=== PATIENT | female | born 1995 | race African-American/Black ===

== ENCOUNTER → 2017-12-21 13:09 | Outpatient (CLI) | payer BC, SELFPAY ==
[2017-12-21 16:10] LABS: Absolute Lymphocyte Count 1.84 X10^3/ul (0.83-4.51); Absolute Neutrophil Count 7.1 X10^3/uL (2.0-7.7); Basophil# 0.03 X10^3/uL; Basophil% 0.3 % (0-1); Eosinophil# 0.06 X10^3/uL; Eosinophils% 0.6 % (0-5); Hematocrit 35.8 % (37-47); Hemoglobin 11.4 g/dl (12.0-15.0); Lymphocyte # 1.84 X10^3/ul (4.0); Lymphocyte % 19.1 % (19-41); Mean Corp Hgb Conc 31.8 g/gl (32-36); Mean Platelet Vol. 8.8 fl (6.2-12.0); Monocyte# 0.55 X10^3/uL; Monocyte% 5.7 % (0-10); Neutrophil # 7.12 X10^3/uL (2.7-7.7); Neutrophil % 74.1 % (47-70); Platelet Count 358 K/mm3 (150-450); RBC Distribution Width CV 12.8 % (11.6-14.6); Red Blood Count 4.07 M/mm3 (4.2-5.4); White Blood Count 9.6 K/mm3 (4.4-11.0)
[2017-12-21 16:15] LABS: POSITIVE COUNT NO; POSITIVE DIFFERENTIAL NO; POSITIVE MORPHOLOGY NO
[2017-12-21 16:18] LABS: Glucose Challenge Gest 1H 50g 64 mg/dL (70-140)
[2017-12-21 17:01] LABS: HIV - WCH Non-Reactive (Nonreactive); Rubella IgG 88.5 IU/mL
[2017-12-21 18:15] LABS: Chlamydia Trachomatis by PCR Negative (Negative); Neisserai gonorrhoeae by PCR Negative (Negative); Probe Check PASS; Sample Adequacy Control PASS; Specimen Processing Control PASS
[2017-12-23 01:02] LABS: Rapid Plasmin Reagin (RPR) NONREACTIVE (NONREACTIVE)
[2017-12-23 16:09] LABS: Hemoglobin Fraction A 97.7 % (96.4-98.8); Hemoglobin Fraction A2 2.3 % (1.8-3.2); Hemoglobin Fraction C 0 % (0.0); Hemoglobin Fraction F 0 % (0.0-2.0); Hemoglobin Fraction S 0 % (0.0); Hemoglobin Solubility,Panel Negative (Negative)
[2017-12-23 18:36] LABS: HEPATITIS B SURFACE AG Negative (Negative)
[2017-12-27 14:35] LABS: HPV Reflexed? NOT INDICATED
== END ==
PROVIDERS: Visit Provider Obstetrics & Gynecology
DX: Z12.4 Encounter for screening for malignant neoplasm of cervix (principal); Z34.00 Encounter for supervision of normal first pregnancy, unspecified trimester
CPT/HCPCS: 82950; 83021; 85025; 85660; 86592; 86703; 86762; 86850; 86900; 87086; 87340; 87491; 87591; 88175; G0145

== ENCOUNTER → 2018-02-24 15:39 | Outpatient (CLI) | payer BC, SELFPAY ==
[2018-03-07 12:08] LABS: AFP MoM Value 0.99 (.); AFP Value-EIA 29.3 ng/mL (.); Comment Report (.); DIA MoM Value 1.39 (.); DIA Value-EIA 181.86 pg/mL (.); DSR (By Age) 1056 (.); DSR (Second Trimester) 592 (.); Gestat. Age Based On As provided (.); Gestational Age 17.1 WEEKS (.); Insulin Dep Diabetes No (.); Maternal Age At EDD 24.4 yr (.); hCG MoM 2.08 (.); hCG Value 49753 mIU/mL (.)
== END ==
PROVIDERS: Family Provider Family Medicine; PCP Family Medicine; Referring Provider Obstetrics & Gynecology; Visit Provider Obstetrics & Gynecology
DX: Z34.90 Encounter for supervision of normal pregnancy, unspecified, unspecified trimester (principal)
CPT/HCPCS: 36415; 82105; 82677; 84702; 86336

== ENCOUNTER → 2018-05-12 15:04 | Outpatient (CLI) | payer BC, SELFPAY ==
[2018-05-12 14:55] VITALS: BMI 36.5
[2018-05-12 15:49] LABS: Hematocrit 30.5 % (37-47); Hemoglobin 10.1 g/dl (12.0-15.0); Mean Corp Hgb Conc 33.1 g/gl (32-36); Mean Corpuscular Volume 90.5 fL (81-99); Mean Platelet Vol. 9.3 fl (6.2-12.0); Platelet Count 322 K/mm3 (150-450); RBC Distribution Width CV 12.6 % (11.6-14.6); RBC Distribution Width SD 40.4 fl (35.1-43.9); Red Blood Count 3.37 M/mm3 (4.2-5.4); White Blood Count 12.4 K/mm3 (4.4-11.0)
[2018-05-12 15:50] LABS: Differential Indicated MANUAL DIFF; POSITIVE COUNT YES; POSITIVE DIFFERENTIAL NO; POSITIVE MORPHOLOGY YES
[2018-05-12 16:12] LABS: Glucose Challenge Gest 1H 50g 81 mg/dL (70-140)
[2018-05-12 17:26] LABS: Lymphocyte 17 % (19-41); Monocyte 4 % (0-10); Neutrophil-Band 1 % (0-5); Neutrophil-Segmented 78 % (47-70); Platelet Estimate ADEQUATE (ADEQ); Red Cell Morphology NORM C+C NORMAL (NORM C&C); Total Cells Counted 100 (MANUAL DIFF)
[2018-05-12 20:58] LABS: Absolute Lymphocyte Count 2.11 X10^3/ul (0.83-4.51); Absolute Neutrophil Count 9.8 X10^3/uL (2.0-7.7)
[2018-05-15 11:47] LABS: Pathologist Review Reviewed
== END ==
PROVIDERS: Family Provider Family Medicine; PCP Family Medicine; Referring Provider Obstetrics & Gynecology; Visit Provider Obstetrics & Gynecology
DX: Z34.90 Encounter for supervision of normal pregnancy, unspecified, unspecified trimester (principal)
CPT/HCPCS: 36415; 82950; 85025

== ENCOUNTER 2018-06-30 16:05 | Outpatient (CLI) | payer BC, SELFPAY ==
[2018-06-20 15:04] VITALS: BMI 37.9
[2018-06-30 16:44] VITALS: BMI 38.3
--- NOTE | 2018-07-01 12:41 | OB.TRI.NOTE ---
- Problem List (1) Threatened labor Status: Acute (2) Mild anemia Status: Acute (3) Obesity affecting Status: Acute Qualifiers: Comment: 1 tm glucola normal, healthy weight gain discussed (4) Status: Acute Qualifiers: Comment: genetic and carrier screening declined. ntd screening negative. Anatomy US normal. (5) BMI 33.0-33.9,adult Status: Acute Comment: 1 tm glucola nl, discussed weight gain in (6) Asthma affecting , antepartum Status: Acute Comment: albuterol PRN (7) Supervision of normal Status: Acute Qualifiers: Comment: PRR CHELSEY 08/03/18 raul Palacios Salo History of Present Illness Date of Service: 06/30/18 Reason For Visit: R/O LABOR History of Present Illness: co ctx Allergies Mycobacterium Tuberculosis (Tubercu Allergy (Mild, Verified 06/20/18 15:03) Nausea/Vom/Diarrhea Sulfa (Sulfonamide Antibiotics) Allergy (Mild, Verified 06/20/18 15:03) Other - Pertinent Past Medical History Medical History: Past Medical History (Last Reviewed 06/20/18 @ 15:03 by Martine Sterling) Asthma Surgical History: Past Surgical History (Last Reviewed 06/20/18 @ 15:04 by Martine Sterling) History of wisdom tooth extraction, class II edentulism NST - FHR Rate Baby A Baseline: 130 Variability:: Moderate Accelerations:: 15 x 15 Decelerations:: None NST Reactive:: Yes FHR Category:: Category I Uterine Activity:: irregular Impression/Plan threatened labor dc home labor precautions reactive NST
== END 2018-06-30 16:46 | disposition home or self-care (01) ==
LOC: WPOUT 16:08 → WP 16:09
PROVIDERS: Family Provider Family Medicine; PCP Family Medicine; Referring Provider Obstetrics & Gynecology; Visit Provider Obstetrics & Gynecology
DX: O60.03 Preterm labor without delivery, third trimester (principal); Z3A.00 Weeks of gestation of pregnancy not specified; J45.909 Unspecified asthma, uncomplicated; O99.210 Obesity complicating pregnancy, unspecified trimester; E66.9 Obesity, unspecified
CPT/HCPCS: 59050; 99218; G0378

== ENCOUNTER → 2018-07-05 16:12 | Outpatient (CLI) | payer BC, SELFPAY ==
[2018-07-05 15:47] VITALS: BMI 38.3
== END ==
PROVIDERS: Family Provider Family Medicine; PCP Family Medicine; Referring Provider Nurse Practitioner Women's Health; Visit Provider Nurse Practitioner Women's Health
DX: Z34.03 Encounter for supervision of normal first pregnancy, third trimester (principal)
CPT/HCPCS: 87077; 87081

== ENCOUNTER 2018-07-31 13:25 | Inpatient (IN) | payer BC, SELFPAY ==
[2018-07-28 17:03] VITALS: BMI 38.3
[2018-07-31 13:08] VITALS: BMI 39.6
[2018-07-31 13:23] LABS: ROM Internal Control Test YES-OK TO RESULT pt. (Internal QC)
[2018-07-31 13:24] LABS: ROM Patient Test POSITIVE (Negative); Record Kit Lot#, ROM+ J7836
[2018-07-31] MEDS: Lactated Ringers 1,000 ML 50 ML IV ×2 (14:10→22:19)
[2018-07-31] MEDS: Oxytocin 30 units/NS 500 ml 30 UNITS/500 ML IV.SOLN IV (14:53)
[2018-07-31 15:06] LABS: Absolute Neutrophil Count 8.7 X10^3/uL (2.0-7.7); Basophil# 0.03 X10^3/uL; Basophil% 0.3 % (0-1); Eosinophil# 0.08 X10^3/uL; Eosinophils% 0.7 % (0-5); Hemoglobin 12.2 g/dl (12.0-15.0); Lymphocyte % 13.1 % (19-41); Mean Corp Hgb Conc 32.1 g/gl (32-36); Mean Corpuscular Hgb 29.5 pg (27.0-32.0); Mean Platelet Vol. 9.6 fl (6.2-12.0); Monocyte# 0.76 X10^3/uL; Monocyte% 6.7 % (0-10); Neutrophil # 8.72 X10^3/uL (2.7-7.7); Neutrophil % 76.4 % (47-70); Platelet Count 266 K/mm3 (150-450); RBC Distribution Width SD 46.1 fl (35.1-43.9); Red Blood Count 4.13 M/mm3 (4.2-5.4); White Blood Count 11.4 K/mm3 (4.4-11.0)
--- NOTE | 2018-07-31 15:13 | PCM.HP.OB ---
- Problem List (1) PROM (premature rupture of membranes) Status: Acute (2) Mild anemia Status: Acute (3) Obesity affecting Status: Acute Qualifiers: Comment: 1 tm glucola normal, healthy weight gain discussed (4) Status: Acute Qualifiers: Comment: genetic and carrier screening declined. ntd screening negative. Anatomy US normal. (5) BMI 33.0-33.9,adult Status: Acute Comment: 1 tm glucola nl, discussed weight gain in (6) Asthma affecting , antepartum Status: Acute Comment: albuterol PRN (7) Supervision of normal Status: Acute Qualifiers: Comment: PRR CHELSEY 08/03/18 boy Philip Salo History Date of Admission: 07/31/18 Final CHELSEY: 08/03/18 Gestational age: 39 Weeks and 4 Days History of this : This is a 23 year-old, , at 39 weeks gestational age presents with PROM clear fluid this morning. she isn't having any significant ctx or vb. she has had an uncomplicated Medical History: Medical History (Last Reviewed 07/28/18 @ 16:38 by Lulu Dobbins) Asthma J45.909 Surgical History: Surgical History (Last Reviewed 07/28/18 @ 16:38 by Lulu Dobbins) History of wisdom tooth extraction, class II edentulism K08.492 Allergies Mycobacterium Tuberculosis (Tubercu Allergy (Mild, Verified 07/31/18 13:09) Nausea/Vom/Diarrhea Sulfa (Sulfonamide Antibiotics) Allergy (Mild, Verified 07/31/18 13:09) Other Home Medications: Home Medications vitamin,calcium,ocatdzfi-huju-tipnm acid tablet 1 tab PO QDAY 12/21/17 Smoking Status: Never smoker Alcohol: None Number of Fetus(es): 1 Heart Tracinmoderate variability reactive no decelerations category I tracing [place]: no regular History Past Pregnancies: Past Pregnancies Delivery Date Name GA/Weeks Outcome Route Weight Gender Labor Length Anesthesia Delivery Location Provider FOB Labs: Mom's Labs & Results 07/31/18 07/31/18 07/31/18 13:10 14:10 14:10 WBC Pending RBC Pending Hgb Pending Hct Pending MCV Pending MCH Pending MCHC Pending RDW Pending RDW Differential Pending Plt Count Pending Neut % (Auto) Pending Absolute Neuts (auto) Pending Total Counted Pending Vag Amniotic Fld Detect POSITIVE H Blood Type Pending Antibody Screen Pending Course Did the patient receive Yes care? Labs Blood Type: B RH: POSITIVE RPR/VDRL/Syphilis Nonreactive Rubella status Immune HbSAg Negative Date Done: 12/21/17 Chlamydia Negative Gonorrhea Negative HIV/AIDS Non-Reactive Group B Strep: Negative Current Obstetrical History Gestational Diabetes No Incompetent Cervix No Infertility Yes: Pt has PCOS IUGR No Macrosomia No Hypertension/Pre-eclampsia No Placenta Previa/Abruption No PTL/PROM No Uterine anomaly No Oligohydramnios No Polyhydramnios No Past Medical History Asthma Yes Diabetes No Hypertension No Heart disease No Mitral valve prolapse No Neurologic/Seizure disorder/ No Migraines Kidney disease No Liver disease No Varicosities No Clotting disorders/Hx of DVT No Thyroid Dysfunction No Other medical diseases Yes: PCOS Psychiatric disorders No Major trauma No Abnormal PAP smear No Sleep apnea No Mammogram in the last 2 years No Social History Marital Status: Alleged father Salo Hx Smoking No Smoking Status Never smoker How long have you used n/a substances (years)? Expected Infant Delivery Method: Spontaneous Vaginal Review of Systems Constitutional: Denies: Fever, Malaise Eyes: Denies: Blurred vision, Vision Change HEENT: Denies: Head Aches, Visual Changes Cardiovascular: Denies: Chest Pain, Palpitations Respiratory: Denies: Cough, Shortness of Breath, Wheezing Gastrointestinal: Denies: Abdominal Pain, Diarrhea, Nausea, Vomiting Genitourinary: Denies: Dysuria, Hematuria Gynecological: Reports: Vaginal discharge Musculoskeletal: Denies: Joint Pain, Muscle pain Skin: Denies: Lesions, Rash Neurological: Denies: Blurred vision, Focal weakness, Headaches Psychiatric: Denies: Anxiety, Depression Endocrine: Denies: Heat/ Cold Intolerance Hematologic/ Lymphatic: Denies: Easy Bruising, Easy Bleeding Physical Exam General: Alert, Cooperative, No apparent distress HEENT: Atraumatic, Normocephalic. Negative for: Thyromegaly, Lymphadenopathy Cardiovascular: Regular rate Lungs: Normal air movement Abdomen: Soft, Non Tender, Gravid Neurological: Deep Tendon Reflexes 2+/4 and Symmetrical, Neuro grossly intact. Negative for: Clonus SHOE FITTER: Normal external genitalia. Negative for: Vulvar lesions Estimated gestational size: Appropriate for gestational size Presentation: Cephalic Cervix Dilation (cm): 1 Station: -3 Effacement (%): 50 Assessment/Plan All Active Problems (Last Reviewed 07/28/18 @ 16:38 by Lulu Dobbins) PROM (premature rupture of membranes) (Acute) Threatened labor (Acute) Mild anemia (Acute) Obesity affecting (Acute) (Acute) BMI 33.0-33.9,adult (Acute) Asthma affecting , antepartum (Acute) Supervision of normal (Acute) Flu vaccine need (Resolved) This is a 23 year-old, , at 39 weeks gestational age presents PROM Patient presents IOL, plan management for , pitocin per protocol. Pain management: plans epidural GBS negative. Management of any complications: none I have reviewed the [facility] and made any clinically relevant updates.
--- NOTE | 2018-07-31 15:17 | HP.PCM_ITS ---
- Problem List (1) PROM (premature rupture of membranes) Status: Acute (2) Mild anemia Status: Acute (3) Obesity affecting Status: Acute Qualifiers: Comment: 1 tm glucola normal, healthy weight gain discussed (4) Status: Acute Qualifiers: Comment: genetic and carrier screening declined. ntd screening negative. Anatomy US normal. (5) BMI 33.0-33.9,adult Status: Acute Comment: 1 tm glucola nl, discussed weight gain in (6) Asthma affecting , antepartum Status: Acute Comment: albuterol PRN (7) Supervision of normal Status: Acute Qualifiers: Comment: PRR CHELSEY 08/03/18 boy Philip Salo History Date of Admission: 07/31/18 Final CHELSEY: 08/03/18 Gestational age: 39 Weeks and 4 Days History of this : This is a 23 year-old, , at 39 weeks gestational age presents with PROM clear fluid this morning. she isn't having any significant ctx or vb. she has had an uncomplicated Medical History: Medical History (Last Reviewed 07/28/18 @ 16:38 by Lulu Dobbins) Asthma J45.909 Surgical History: Surgical History (Last Reviewed 07/28/18 @ 16:38 by Lulu Dobbins) History of wisdom tooth extraction, class II edentulism K08.492 Allergies Mycobacterium Tuberculosis (Tubercu Allergy (Mild, Verified 07/31/18 13:09) Nausea/Vom/Diarrhea Sulfa (Sulfonamide Antibiotics) Allergy (Mild, Verified 07/31/18 13:09) Other Home Medications: Home Medications vitamin,calcium,ityvqgfm-hfcp-hfhsn acid tablet 1 tab PO QDAY 12/21/17 Smoking Status: Never smoker Alcohol: None Number of Fetus(es): 1 Heart Tracinmoderate variability reactive no decelerations category I tracing [place]: no regular History Past Pregnancies: Past Pregnancies Delivery Date Name GA/Weeks Outcome Route Weight Gender Labor Length Anesthesia Delivery Location Provider FOB Labs: Mom's Labs & Results 07/31/18 07/31/18 07/31/18 13:10 14:10 14:10 WBC Pending RBC Pending Hgb Pending Hct Pending MCV Pending MCH Pending MCHC Pending RDW Pending RDW Differential Pending Plt Count Pending Neut % (Auto) Pending Absolute Neuts (auto) Pending Total Counted Pending Vag Amniotic Fld Detect POSITIVE H Blood Type Pending Antibody Screen Pending Course Did the patient receive Yes care? Labs Blood Type: B RH: POSITIVE RPR/VDRL/Syphilis Nonreactive Rubella status Immune HbSAg Negative Date Done: 12/21/17 Chlamydia Negative Gonorrhea Negative HIV/AIDS Non-Reactive Group B Strep: Negative Current Obstetrical History Gestational Diabetes No Incompetent Cervix No Infertility Yes: Pt has PCOS IUGR No Macrosomia No Hypertension/Pre-eclampsia No Placenta Previa/Abruption No PTL/PROM No Uterine anomaly No Oligohydramnios No Polyhydramnios No Past Medical History Asthma Yes Diabetes No Hypertension No Heart disease No Mitral valve prolapse No Neurologic/Seizure disorder/ No Migraines Kidney disease No Liver disease No Varicosities No Clotting disorders/Hx of DVT No Thyroid Dysfunction No Other medical diseases Yes: PCOS Psychiatric disorders No Major trauma No Abnormal PAP smear No Sleep apnea No Mammogram in the last 2 years No Social History Marital Status: Alleged father Salo Hx Smoking No Smoking Status Never smoker How long have you used n/a substances (years)? Expected Infant Delivery Method: Spontaneous Vaginal Review of Systems Constitutional: Denies: Fever, Malaise Eyes: Denies: Blurred vision, Vision Change HEENT: Denies: Head Aches, Visual Changes Cardiovascular: Denies: Chest Pain, Palpitations Respiratory: Denies: Cough, Shortness of Breath, Wheezing Gastrointestinal: Denies: Abdominal Pain, Diarrhea, Nausea, Vomiting Genitourinary: Denies: Dysuria, Hematuria Gynecological: Reports: Vaginal discharge Musculoskeletal: Denies: Joint Pain, Muscle pain Skin: Denies: Lesions, Rash Neurological: Denies: Blurred vision, Focal weakness, Headaches Psychiatric: Denies: Anxiety, Depression Endocrine: Denies: Heat/ Cold Intolerance Hematologic/ Lymphatic: Denies: Easy Bruising, Easy Bleeding Physical Exam General: Alert, Cooperative, No apparent distress HEENT: Atraumatic, Normocephalic. Negative for: Thyromegaly, Lymphadenopathy Cardiovascular: Regular rate Lungs: Normal air movement Abdomen: Soft, Non Tender, Gravid Neurological: Deep Tendon Reflexes 2+/4 and Symmetrical, Neuro grossly intact. Negative for: Clonus [employer] CONSULTANT: Normal external genitalia. Negative for: Vulvar lesions Estimated gestational size: Appropriate for gestational size Presentation: Cephalic Cervix Dilation (cm): 1 Station: -3 Effacement (%): 50 Assessment/Plan All Active Problems (Last Reviewed 07/28/18 @ 16:38 by Lulu Dobbins) PROM (premature rupture of membranes) (Acute) Threatened labor (Acute) Mild anemia (Acute) Obesity affecting (Acute) (Acute) BMI 33.0-33.9,adult (Acute) Asthma affecting , antepartum (Acute) Supervision of normal (Acute) Flu vaccine need (Resolved) This is a 23 year-old, , at 39 weeks gestational age presents PROM Patient presents IOL, plan management for , pitocin per protocol. Pain management: plans epidural GBS negative. Management of any complications: none I have reviewed the [facility] and made any clinically relevant updates.
[2018-07-31 15:29] LABS: POSITIVE COUNT NO; POSITIVE DIFFERENTIAL NO; POSITIVE MORPHOLOGY NO
[2018-07-31] MEDS: fentaNYL-bupivacaine (epidural) 100 ML BAG EPIDURAL (22:24)
[2018-08-01] MEDS: Lactated Ringers 1,000 ML 50 ML IV (01:28)
[2018-08-01] MEDS: Ondansetron 4 MG/2 ML Vial IV (02:40)
[2018-08-01] MEDS: fentaNYL-bupivacaine (epidural) 100 ML BAG EPIDURAL (02:56)
--- NOTE | 2018-08-01 05:00 | PCM.OPRPT ---
Problem List (1) PROM (premature rupture of membranes) Status: Acute (2) Mild anemia Status: Acute (3) Obesity affecting Status: Acute Qualifiers: Comment: 1 tm glucola normal, healthy weight gain discussed (4) Status: Acute Qualifiers: Comment: genetic and carrier screening declined. ntd screening negative. Anatomy US normal. (5) BMI 33.0-33.9,adult Status: Acute Comment: 1 tm glucola nl, discussed weight gain in (6) Asthma affecting , antepartum Status: Acute Comment: albuterol PRN (7) Supervision of normal Status: Acute Qualifiers: Comment: PRR CHELSEY 08/03/18 boy Philip Salo Vaginal Delivery Maternal Presentation: Spontaneous Rupture of Membranes 39w5d with PROM Method of Induction: Pitocin Medical Reason for Induction: Premature Rupture of Membranes Amniotic Membrane Rupture Type: Spontaneous at home Amniotic Fluid Description: Clear Final CHELSEY: 08/03/18 Gestational age: 39 Weeks and 5 Days Date of Procedure: 08/01/18 Pre-Operative Diagnosis: prom Post-Operative Diagnosis: same Surgery/ Procedure Performed: Spontaneous Vaginal Delivery Type of Anesthesia: Epidural Description of Procedure: Patient began pushing and delivered the head in the ROP presentation. The head was delivered atraumatically . The anterior and posterior shoulders delivered without complication followed by the rest of the infant and the infant was placed on the maternal abdomen. Delayed cord clamping was employed for approximately 60 seconds. Cord was clamped and cut and gentle traction was applied to the cord and the placenta delivered spontaneously immediately following it was noted to be intact with three-vessel cord. The perineum and vagina were inspected and noted to have a second-degree laceration repaired in the usual fashion with 3-0 Vicryl repeat in due to an adequate epidural anesthesia the perineum was injected with 1% lidocaine. EBL was 400 cc. Patient and tolerated delivery well. Presentation: ROP Placental Delivery Description: Spontaneous Placenta Disposition: [facility] Cord Vessel Description: 3 Vessels Cord Entanglement: None Estimated Blood Loss: 400 Infant A gender: Male Episiotomy Description: None Laceration: Perineal Extension/lac, 2nd degree Medications given after delivery: IV Pitocin Complications: None
[2018-08-01] MEDS: Oxytocin 30 units/NS 500 ml 30 UNITS/500 ML IV.SOLN 334 UNITS IV (05:23)
[2018-08-01] MEDS: Oxytocin 30 units/NS 500 ml 30 UNITS/500 ML IV.SOLN 167 UNITS IV (05:53)
--- NOTE | 2018-08-01 07:36 | CPS ---
Pt takes ProAir prn @home, has her inhaler here but it is plugged. R.T., as per pharmacy instruction, pulled the med container out, then ran hot water though the administering device which unclogged it. Pt does not want scheduled aerosols, RN will talk with MD to get them changed to prn & send pt's inhlaer to pharmacy for labeling.
[2018-08-01] MEDS: 0.9% Saline Lock 10 ML Syringe IV (07:56)
[2018-08-01] MEDS: Naproxen 250 MG Tablet 500 MG PO ×2 (07:56→19:00)
[2018-08-01 12:38] LABS: Pathologist Review Reviewed
[2018-08-01 14:19] VITALS: BP 123/59; PULSE 80; RESP 14; TEMP 36.6; O2SAT 99
[2018-08-01 17:30] VITALS: BP 104/53; PULSE 75; RESP 16; TEMP 36.4
[2018-08-01 20:33] VITALS: BP 116/71; PULSE 73; RESP 18; TEMP 36.7; O2SAT 99
[2018-08-02 01:00] VITALS: BP 105/54; PULSE 74; RESP 16; TEMP 37.1; O2SAT 99
[2018-08-02 04:00] VITALS: BP 123/66; PULSE 87; RESP 18; TEMP 36.2; O2SAT 97
[2018-08-02 07:30] VITALS: BP 112/57; PULSE 73; RESP 16; TEMP 36.6
[2018-08-02] MEDS: Naproxen 250 MG Tablet 500 MG PO ×2 (08:43→17:35)
[2018-08-02] MEDS: Senna/Docusate Sodium 1 Tablet PO (08:43)
--- NOTE | 2018-08-02 10:03 | PCM.PN.OB ---
Patient Problems: Active and Suspected Problems (Last Reviewed 07/28/18 @ 16:38 by Lulu Dobbins) PROM (premature rupture of membranes) (Acute) Subjective: doing well no complaints pain controlled no CP SOB N V ambulating well tolerating po lochia moderate, going well - Physical Exam General: Alert, Oriented x3 Abdomen: Soft, Non Tender, - - FF below U Vital Signs Temp Pulse Resp BP Pulse Ox 97.9 F 73 16 112/57 L 97 08/02/18 07:30 08/02/18 07:30 08/02/18 07:30 08/02/18 07:30 08/02/18 04:00 Oxygen Delivery Method Room Air Weight: 253 lb 8.505 oz Body Mass Index (BMI) 39.6 Intake and Output for Last 24 Hours 07/31/18 08/01/18 08/02/18 23:59 23:59 23:59 Intake Total 816 / 816 3268 / 3268 Output Total 450 / 450 2100 / 2100 Balance 366 / 366 1168 / 1168 Laboratory Tests Past 24 Hrs 07/31/18 14:10 Diff Path Review Reviewed Medical Necessity - Tobacco Use Smoking Status: Never smoker Assessment/Plan All Active Problems (Last Reviewed 07/28/18 @ 16:38 by Lulu Dobbins) PROM (premature rupture of membranes) (Acute) Threatened labor (Acute) Mild anemia (Acute) Obesity affecting (Acute) (Acute) BMI 33.0-33.9,adult (Acute) Asthma affecting , antepartum (Acute) Supervision of normal (Acute) Flu vaccine need (Resolved) s/p PPD # 1 1. routine post delivery care 2. breast feeding- support given 3. rh positive 4. rubella immune
[2018-08-02 14:30] VITALS: BP 109/50; PULSE 80; RESP 16; TEMP 37.1
[2018-08-02 19:48] VITALS: BP 124/63; PULSE 89; RESP 16; TEMP 36.9
[2018-08-03 02:56] VITALS: BP 121/69; PULSE 92; RESP 18; TEMP 36.6
--- NOTE | 2018-08-03 07:46 | PCM.PN.OB ---
Patient Problems: Active and Suspected Problems (Last Reviewed 07/28/18 @ 16:38 by Lulu Dobbins) PROM (premature rupture of membranes) (Acute) Subjective: doing well no complaints pain controlled no CP SOB N V ambulating well tolerating po lochia moderate, going well - Physical Exam General: Alert, Oriented x3 Abdomen: Soft, Non Tender, Non-Distended, - - ff below U Vital Signs Temp Pulse Resp BP Pulse Ox 97.8 F 92 18 121/69 H 97 08/03/18 02:56 08/03/18 02:56 08/03/18 02:56 08/03/18 02:56 08/02/18 04:00 Oxygen Delivery Method Room Air Weight: 253 lb 8.505 oz Body Mass Index (BMI) 39.6 Intake and Output for Last 24 Hours 08/01/18 08/02/18 08/03/18 23:59 23:59 23:59 Intake Total 3268 / 3268 Output Total 2100 / 2100 Balance 1168 / 1168 Medical Necessity - Tobacco Use Smoking Status: Never smoker Assessment/Plan All Active Problems (Last Reviewed 07/28/18 @ 16:38 by Lulu Dobbins) PROM (premature rupture of membranes) (Acute) Threatened labor (Acute) Mild anemia (Acute) Obesity affecting (Acute) (Acute) BMI 33.0-33.9,adult (Acute) Asthma affecting , antepartum (Acute) Supervision of normal (Acute) Flu vaccine need (Resolved) s/p LTCS PPD # 2 1. routine post care 2. breast feeding- support given 3. rh positive 4. rubella immune 5. home today
[2018-08-03 09:54] VITALS: BP 124/59; PULSE 85; RESP 14; TEMP 36.7
[2018-08-03] MEDS: Naproxen 250 MG Tablet 500 MG PO (10:04)
--- NOTE | 2018-08-03 10:11 | PCM.DCVAG ---
Additional Instructions: If you experience any of the following, contact your healthcare provider. Bleeding that soaks a pad every hour for 2 hours Fever 100.4 or higher Unrelieved incision or abdominal pain Swelling, redness, discharge or bleeding from your incision or episiotomy site Your incision begins to separate Problems urinating (including inability to urinate or burning while urinating). Visual changes Severe headache Flu-like symptoms Pain or redness in one of both of your breasts Pain, warmth, tenderness or swelling in your legs, especially the calf area Frequent nausea and vomiting Symptoms of depression or anxiety If you experience any of the following, call 911 or go to the nearest Emergency Room. Chest pain Problems breathing Seizure activity Partial or complete paralysis of a body part, slurred speech, weakness or drooping of the face, or a sudden inability to walk or hold your balance Allergies/Adverse Reactions: Allergies Mycobacterium Tuberculosis (Tubercu Allergy (Mild, Verified 07/31/18 13:09) Nausea/Vom/Diarrhea Sulfa (Sulfonamide Antibiotics) Allergy (Mild, Verified 07/31/18 13:09) Other Latex, Natural Rubber Allergy (Verified 07/31/18 23:01) Swelling Medications to take at Discharge vitamin,calcium,mpqvjmtz-ipic-mlhab acid tablet 1 tab PO QDAY 12/21/17 Primary Care Physician: Zaheer Crump MD [Primary Care Provider] - Test Results: Test results from this visit will be discussed in further detail at your follow-up appointment, if applicable.
--- NOTE | 2018-08-03 10:12 | DCINST_ITS ---
Additional Instructions: If you experience any of the following, contact your healthcare provider. * Bleeding that soaks a pad every hour for 2 hours * Fever 100.4 or higher * Unrelieved incision or abdominal pain * Swelling, redness, discharge or bleeding from your incision or episiotomy site * Your incision begins to separate * Problems urinating (including inability to urinate or burning while urinating). * Visual changes * Severe headache * Flu-like symptoms * Pain or redness in one of both of your breasts * Pain, warmth, tenderness or swelling in your legs, especially the calf area * Frequent nausea and vomiting * Symptoms of depression or anxiety If you experience any of the following, call 911 or go to the nearest Emergency Room. * Chest pain * Problems breathing * Seizure activity * Partial or complete paralysis of a body part, slurred speech, weakness or drooping of the face, or a sudden inability to walk or hold your balance Allergies/Adverse Reactions: Allergies Mycobacterium Tuberculosis (Tubercu Allergy (Mild, Verified 07/31/18 13:09) Nausea/Vom/Diarrhea Sulfa (Sulfonamide Antibiotics) Allergy (Mild, Verified 07/31/18 13:09) Other Latex, Natural Rubber Allergy (Verified 07/31/18 23:01) Swelling Medications to take at Discharge vitamin,calcium,vrwnolfu-nhkg-uoktx acid tablet 1 tab PO QDAY 12/21/17 Primary Care Physician: Zaheer Crump MD [Primary Care Provider] - Test Results: Test results from this visit will be discussed in further detail at your follow- up appointment, if applicable.
[2018-08-03 13:41] VITALS: BP 123/59; PULSE 80; RESP 14; TEMP 36.7
--- NOTE | 2018-08-03 13:57 | NURSING ---
Patient to W/C for Discharge, Infant placed in car seat by father, and placed on patients lap. Patient and infant off unit in stable condition at 1350. D/C home via private car.
== END 2018-08-03 13:55 | disposition home or self-care (01) | DRG 807 ==
LOC: WPOUT 13:33
PROVIDERS: Admitting Provider Obstetrics & Gynecology; Family Provider Family Medicine; PCP Family Medicine; Referring Provider Obstetrics & Gynecology; Visit Provider Obstetrics & Gynecology
DX: O42.92 Full-term premature rupture of membranes, unspecified as to length of time between rupture and onset of labor (principal); Z37.0 Single live birth; J45.909 Unspecified asthma, uncomplicated; O70.1 Second degree perineal laceration during delivery; Z3A.39 39 weeks gestation of pregnancy
CPT/HCPCS: 59025; 59050; 84112; 85025; 86850; 86900; 99218; J7120; A4216; G0378; J2405

== ENCOUNTER → 2021-10-19 | Outpatient (CLI) | payer BC, SELFPAY ==
[2021-10-21 22:07] LABS: Chlamydia By Nucleic Acid AMP Negative (Negative)
[2021-10-22 17:38] LABS: Gonococcus By Nucleic Acid AMP Negative (Negative)
[2021-10-22 21:45] LABS: HPV Reflexed? NOT INDICATED
== END | disposition home or self-care (01) ==
LOC: LABSPEC 16:42
PROVIDERS: PCP Family Medicine; Visit Provider Nurse Practitioner Women's Health
DX: Z11.3 Encounter for screening for infections with a predominantly sexual mode of transmission (principal); Z12.4 Encounter for screening for malignant neoplasm of cervix
CPT/HCPCS: 87491; 87591; 88175; G0145

== ENCOUNTER 2022-04-12 08:51 | Day surgery (SDC) | payer BC, SELFPAY ==
[2022-04-12] VITALS (7 sets, daily range): BP systolic 111–128; BP diastolic 69–74; PULSE 55–75; RESP 16–18; TEMP 36.4–36.8; O2SAT 96–100; BMI 38.3
[2022-04-12 09:26] LABS: Internal QC Validated? YES +Cl - CLEAR BKGD; Pregnancy, Urine Negative Negative
[2022-04-12] MEDS: Lactated Ringers 1,000 ML 15 ML IV (09:39)
--- NOTE | 2022-04-12 09:54 | DS.PCM_ITS ---
Providers Primary Care Physician: TALIA Hutson Reason For Visit: TONSILLECTOMY Medications at Discharge Home Medications Saccharomyces boulardii 250 mg capsule (Daily Probiotic (S. boulardii)) 250 mg PO BID 10/19/21 albuterol (refill) 90 mcg/actuation aerosol inhaler 90 mcg inhalation PRN PRN SOB 04/05/22 biotin 10,000 mcg chewable tablet (Hair, Skin and Nails (biotin)) 10,000 mcg PO DAILY 04/05/22 medroxyprogesterone 10 mg tablet (Provera) 10 mg PO PRN PRN MENSES 04/05/22 multivitamin 1 cap PO DAILY 04/05/22 omeprazole 40 mg capsule,delayed release 40 mg PO PRN PRN GERD 04/05/22 Weight / BMI Weight Weight: 111 kg Body Mass Index (BMI) 38.3 ABG / Lab / Microbiology Data Laboratory: Laboratory Results - last 24 hr 04/12/22 09:18: Urine Test Negative D/C Instructions Discharge Diet: No restrictions Discharge Activity: Return to Normal Activity Additional Activity Instructions: Ear drops....5 drops left ear tonight and then twice tomorrow Please Follow Up With: Pierce Mroris MD When: 2 weeks Meaningful Use Info Meaningful Use Diagnoses (Choose all that apply): None applicable Discharge Plan Admission Attending Provider: Pierce Morris Primary Care Provider: Fe Plascencia NP Discharge Orders/Prescriptions Prescriptions: No Action Saccharomyces boulardii [Daily Probiotic (S. boulardii)] 250 mg capsule 250 mg PO BID omeprazole 40 mg Capsule,Delayed Release(Dr/Ec) 40 mg PO PRN PRN (Reason: GERD) multivitamin Capsule 1 cap PO DAILY albuterol (refill) 90 mcg/actuation Aerosol 90 mcg INHALATION PRN PRN (Reason: SOB) Hair, Skin and Nails (biotin) 10,000 mcg Tablet,Chewable 10,000 mcg PO DAILY medroxyprogesterone [Provera] 10 mg tablet 10 mg PO PRN PRN (Reason: MENSES) Referrals / Follow Up: Fe Plascencia NP, LENS GRINDING MACHINE OPERATOR-C [Primary Care Provider] - Disposition Disposition (needs filled in before D/C Order can be placed): Home, Self Care
[2022-04-12] MEDS: Ciprofloxacin 0.3% 2.5ml Bottle 1 DRP (10:12)
--- NOTE | 2022-04-12 10:30 | PCM.OPRPT ---
Report of Operation Date of Procedure: 04/12/22 Pre-Operative Diagnosis: recurrent acute left otitis media Post-Operative Diagnosis: same Surgery/Procedure Performed:: left myringotomy with tube Surgeon: Pierce Morris Type of Anesthesia: General Anesthesiologist: Darrius Vidales Estimated Blood Loss (mL): none Description of Procedure: The patient was taken to the operating room on 04/12/2022. The patient was placed in the supine position on the operating room table. The patient was given sufficient general anesthesia. A speculum was inserted into the patient's left ear. Cerumen was removed using a curette. An incision was placed in the anterior inferior quadrant of the tympanic membrane. A Kenya Bobin tube was placed without difficulty. Antibiotic drops were instilled into the patient's ear. The patient was then awoken. They were brought to the recovery room in stable condition. Blood loss none,replacement none. Sponge, needle and instrument counts correct at the end of the procedure.
== END 2022-04-12 12:07 | disposition home or self-care (01) ==
LOC: SDC 08:53 → AC 09:04
PROVIDERS: Anesthesiology; PCP Nurse Practitioner Family; Referring Provider Otolaryngology; Visit Provider Otolaryngology
PROC: (CPT 69436; principal; 2022-04-12 10:45)
DX: H66.005 Acute suppurative otitis media without spontaneous rupture of ear drum, recurrent, left ear (principal); Z87.42 Personal history of other diseases of the female genital tract; J45.909 Unspecified asthma, uncomplicated; K21.9 Gastro-esophageal reflux disease without esophagitis
CPT/HCPCS: 69436; 00126; 81025; J7120; J2405

== ENCOUNTER 2022-05-16 12:19 | Emergency (ER) | payer BC, SELFPAY ==
[2022-05-16 12:19] VITALS: BP 109/64; PULSE 89; RESP 18; TEMP 35.8; O2SAT 100; BMI 38.3
--- NOTE | 2022-05-16 12:51 | EDS_ITS ---
HPI History of Present Illness Chief Complaint: Sore Throat Informant: patient Onset/Context/Timing Onset: Today Quality: Sore throat and white spots on tonsils Worsened by: Eating, talking, swallowing Associated Symptoms Associated Symptoms: No fevers Narrative Narrative: Patient has had ongoing trouble with pharyngitis. Following with ENT. Today she noted white spots. No fevers. No cough. No change in her voice. Prior similar symptoms: Yes Recent Illness/Hospitalization: No PFSH PFSH Medical History Anemia Anxiety Asthma Depression Gastric reflux Non-smoker Shortness of breath on exertion Home Medications albuterol (refill) 90 mcg/actuation aerosol inhaler 90 mcg inhalation PRN PRN SOB 04/05/22 [History Last Taken Unknown] biotin 10,000 mcg chewable tablet (Hair, Skin and Nails (biotin)) 10,000 mcg PO DAILY 04/05/22 [History Last Taken Unknown] multivitamin 1 cap PO DAILY 04/05/22 [History Last Taken Unknown] omeprazole 40 mg capsule,delayed release 40 mg PO PRN PRN GERD 04/05/22 [History Last Taken Unknown] azithromycin 500 mg tablet 500 mg PO DAILY #4 tabs 05/16/22 [Rx Last Taken Unknown] Allergy/AdvReac Type Severity Reaction Status Date / Time Mycobacterium Tuberculosis Allergy Mild Nausea/Vom/ Verified 05/16/22 12:22 (Tubercu Diarrhea Sulfa (Sulfonamide Allergy Mild Other Verified 05/16/22 12:22 Antibiotics) Latex, Natural Rubber Allergy Swelling Verified 05/16/22 12:22 Family History Father Diabetes Uncle Diabetes Grandmother Diabetes Surgical History History of wisdom tooth extraction, class II edentulism Social History Smoking Status: Never smoker alcohol intake: never substance use type: does not use caffeine: Yes what type of physical activity do you participate in: walking seatbelt use: always do you feel safe at home: Yes additional social history: single Patient works at [employer] ROS ED Review of Systems ROS Unobtainable: due to encephalopathy Constitutional Constitutional ED: Denies chills or fever(s) Eyes Eyes: Denies blurry vision ENT ENT ED: Reports sore throat; Denies ear pain or rhinorrhea Cardiovascular Cardiovascular: Denies chest pain or palpitations Respiratory/Chest Respiratory/Chest: Denies cough or dyspnea Gastrointestinal Gastrointestinal: Denies abdominal pain Genitourinary Genitourinary ED: Denies dysuria Musculoskeletal Musculoskeletal: Denies arthralgias or neck pain Integumentary Denies abscess Neurologic Neurologic: Denies headache(s) Psychiatric Psychiatric: Denies anxiety Endocrine Endocrinology: Denies cold intolerance Hematologic/Lymphatic Hematologic/Lymphatic: Reports systems reviewed and no addt'l complaints, except as documented Allergic/Immunologic Allergic/Immunologic ED: Denies mouth swelling EXAM Physical Exam Const Vital Signs: 05/16/22 12:19 Temperature 96.4 F L Temperature Source Temporal Pulse Rate 89 Respiratory Rate 18 Blood Pressure 109/64 Blood Pressure Mean 79 Pulse Ox 100 Oxygen Delivery Method Room Air Positive well nourished and well developed General Appearance ED: well developed HEENT Reports moist mucous membranes HEENT Narrative: Tympanostomy tube present and normal left TM, bilateral 2+ tonsils, symmetric, uvula midline, exudates present, normal voice Eyes EOMs intact bilaterally Neck Neck Narrative: Good range of motion laterally and with flexion and extension Lymph Lymphatic Narrative: No lymphadenopathy appreciated Resp normal respiratory effort and clear to auscultation bilaterally Cardio regular rate and regular rhythm Neuro oriented x3 and CN's II-XII intact bilaterally Sensorium / Orientation: alert Psych mental status grossly normal MDM MDM MDM Narrative Medical decision making narrative: Patient does not appear to have an emergent surgical process. Appears to have pharyngitis and will be treated medically. Decadron given here 1 time. Prescription for azithromycin 500 mg x 5 days. She has been on penicillins in the past, so azithromycin was chosen. Follow-up with ENT. Return for any new or worsening issues. Disposition is discharged home Impression #1 pharyngitis Discharge Plan Triage Chief Complaint: Sore Throat ED Provider: Darren Everett Dx/Rx/DC Orders Instructions: ED Pharyngitis, Viral Prescriptions: New azithromycin 500 mg tablet 500 mg PO DAILY Qty: 4 0RF No Action omeprazole 40 mg Capsule,Delayed Release(Dr/Ec) 40 mg PO PRN PRN (Reason: GERD) multivitamin Capsule 1 cap PO DAILY albuterol (refill) 90 mcg/actuation Aerosol 90 mcg INHALATION PRN PRN (Reason: SOB) Hair, Skin and Nails (biotin) 10,000 mcg Tablet,Chewable 10,000 mcg PO DAILY Primary Care Provider: Fe Plascencia NP Referrals: Fe Plascencia NP, AN/SSN 2 4 OPERATOR-C [Primary Care Provider] - Disposition Disposition: Home, Self Care
[2022-05-16] MEDS: Azithromycin 250 MG Tablet 500 MG PO (13:01)
[2022-05-16] MEDS: dexAMETHasone 10 MG/ML Vial PO.IVFORM (13:01)
== END 2022-05-16 13:06 | disposition home or self-care (01) ==
LOC: ED 13:01
PROVIDERS: Emergency Provider Emergency Medicine; PCP Nurse Practitioner Family; Visit Provider Emergency Medicine
DX: J02.9 Acute pharyngitis, unspecified (principal); J45.909 Unspecified asthma, uncomplicated
CPT/HCPCS: 99283

== ENCOUNTER 2022-07-27 08:03 | Emergency (ER) | payer BC, SELFPAY ==
[2022-07-27 08:04] VITALS: BP 119/63; PULSE 106; RESP 14; TEMP 36.7; O2SAT 100; BMI 38.5
--- NOTE | 2022-07-27 08:26 | EX.ED.DYSGE1 ---
HPI History of Present Illness Chief Complaint: Sore Throat Narrative Narrative: Patient has a history of tonsillitis, she has had quite a few problems with her tonsils she woke up today with soreness, subjective fevers left-sided neck pain and painful swallowing. She has no voice change, no upper airway congestion. [facility] Medical History Anemia Anxiety Asthma Depression Gastric reflux Non-smoker Shortness of breath on exertion Home Medications albuterol (refill) 90 mcg/actuation aerosol inhaler 90 mcg inhalation PRN PRN SOB 04/05/22 [History Last Taken Unknown] biotin 10,000 mcg chewable tablet (Hair, Skin and Nails (biotin)) 10,000 mcg PO DAILY 04/05/22 [History Last Taken Unknown] multivitamin 1 cap PO DAILY 04/05/22 [History Last Taken Unknown] omeprazole 40 mg capsule,delayed release 40 mg PO PRN PRN GERD 04/05/22 [History Last Taken Unknown] azithromycin 500 mg tablet 500 mg PO DAILY #4 tabs 05/16/22 [Rx Last Taken Unknown] doxycycline hyclate 100 mg capsule 100 mg PO BID #14 caps 07/27/22 [Rx Last Taken Unknown] Allergy/AdvReac Type Severity Reaction Status Date / Time Mycobacterium Tuberculosis Allergy Mild Nausea/Vom/ Verified 07/27/22 08:04 (Tubercu Diarrhea Sulfa (Sulfonamide Allergy Mild Other Verified 07/27/22 08:04 Antibiotics) Latex, Natural Rubber Allergy Swelling Verified 07/27/22 08:04 Family History Father Diabetes Uncle Diabetes Grandmother Diabetes Surgical History History of wisdom tooth extraction, class II edentulism Social History Smoking Status: Never smoker alcohol intake: never substance use type: does not use caffeine: Yes what type of physical activity do you participate in: walking seatbelt use: always do you feel safe at home: Yes additional social history: single Patient works at [employer] [facility] Narrative Past medical history: Reviewed Medications: Reviewed Social history: Noncontributory Review of systems: All systems negative except as indicated General: No fever Eyes: No visual changes ENT: As in HPI Neck: Left anterior lymph node chain pain Cardiovascular: No chest pain Respiratory: No shortness of breath or cough Gastrointestinal: No abdominal pain, nausea vomiting or diarrhea Musculoskeletal: Some back pain last night Skin: No rash EXAM Physical Exam Narrative Exam Narrative: Physical exam General: Patient appears relatively comfortable in the bed Head: Normocephalic, Atraumatic Eyes: Conjunctiva not pale ENT: Left-sided tonsillitis with slight exudates she also has uvulitis. She otherwise has a normal soft palate and a normal voice no difficulty handling secretions. Moist mucous membranes Neck: Supple, left anterior chain lymphadenopathy Cardiovascular: Regular rate, Regular rhythm Respiratory: No distress, CTA bilaterally Abdomen: Soft, Nontender, Nondistended Back: Nontender, Normal Inspection. Negative for: CVA tenderness Extremities: Nontender, No edema Skin: Normal color, No rash Neurological: Alert, Normal Strength, Normal Sensation Const Vital Signs: 07/27/22 08:04 Temperature 98.1 F Temperature Source Temporal Pulse Rate 106 H Respiratory Rate 14 Blood Pressure 119/63 Blood Pressure Mean 81 Pulse Ox 100 Oxygen Delivery Method Room Air MDM MDM MDM Narrative Medical decision making narrative: Currently her Centor score is a 3 however there may have been a fever at home which would make it a 4 I will go ahead and treat, she has had some issues with amoxicillin I will give her doxycycline. I talked to her about following up with ENT in fact she is post to have her tonsils out in a few days. I thought about imaging like a soft tissue neck CT however the patient is handling her secretions she has a normal soft palate no evidence of peritonsillar abscess or deep abscess. Discharge Plan Triage Chief Complaint: Sore Throat ED Provider: Tino Lazaro Dx/Rx/DC Orders Clinical Impression: Pharyngitis, Acute tonsillitis, Uvulitis, Cervical lymphadenopathy Instructions: ED Tonsillitis Prescriptions: New doxycycline hyclate 100 mg capsule 100 mg PO BID Qty: 14 0RF No Action omeprazole 40 mg Capsule,Delayed Release(Dr/Ec) 40 mg PO PRN PRN (Reason: GERD) multivitamin Capsule 1 cap PO DAILY albuterol (refill) 90 mcg/actuation Aerosol 90 mcg INHALATION PRN PRN (Reason: SOB) Hair, Skin and Nails (biotin) 10,000 mcg Tablet,Chewable 10,000 mcg PO DAILY azithromycin 500 mg tablet 500 mg PO DAILY Qty: 4 0RF Primary Care Provider: Fe Plascencia NP Referrals: Fe Plascencia NP, SUPERVISOR [employer] [Primary Care Provider] - Disposition Disposition: Home, Self Care
[2022-07-27] MEDS: dexAMETHasone 4 MG Tablet 12 MG PO (08:41)
[2022-07-27 08:44] VITALS: BP 124/69; PULSE 71; RESP 15; O2SAT 98
== END 2022-07-27 08:49 | disposition home or self-care (01) ==
LOC: ED 08:40
PROVIDERS: Emergency Provider Emergency Medicine; PCP Nurse Practitioner Family; Visit Provider Emergency Medicine
DX: J03.90 Acute tonsillitis, unspecified (principal); R59.0 Localized enlarged lymph nodes; J45.909 Unspecified asthma, uncomplicated; K21.9 Gastro-esophageal reflux disease without esophagitis; K12.2 Cellulitis and abscess of mouth
CPT/HCPCS: 99283

== ENCOUNTER 2023-05-03 19:59 | Emergency (ER) | payer BC, SELFPAY ==
[2023-05-03 19:59] VITALS: BP 137/84; PULSE 84; RESP 16; TEMP 36.1; O2SAT 100; BMI 37.5
--- NOTE | 2023-05-03 23:04 | EX.ED.VIS.UR ---
HPI HPI - URI History of Present Illness Chief Complaint: Cough Informant: patient Onset/Context/Timing Onset: Today Context: Sudden Onset Timing: Intermittent Quality: Bloody Location: Sputum Worsened by: - (Nothing) Relieved by: - (Nothing) Associated Symptoms Associated Symptoms: Positive for Chest Pain, Hemoptysis and Productive Cough; Negative for Nasal Congestion, Headache, Sinus Pressure, Myalgias, Nausea, Vomiting, Diarrhea, Shortness of Breath or Nonproductive cough Narrative Narrative: Patient presents with cough that occurred today. Patient states she was driving home from a movie today and had a cough. Patient states she coughed up a small ball of blood. Patient states that it began rather suddenly. Patient states she had a mild cough since that time. Patient admits to a mild sore throat. Patient admits to some pain in her chest. Patient denies any nausea or vomiting. Patient denies any sore throat or rhinorrhea. Patient denies any sinus pressure or headache. Patient denies any fevers or chills. ROS ROS ED Constitutional Constitutional ED: Denies chills or fever(s) Eyes Eyes: Denies blurry vision or change in vision ENT ENT ED: Reports sore throat; Denies rhinorrhea Cardiovascular Cardiovascular: Reports chest pain; Denies palpitations Respiratory/Chest Respiratory/Chest: Reports cough; Denies dyspnea Gastrointestinal Gastrointestinal: Denies nausea or vomiting Genitourinary Genitourinary ED: Denies dysuria or hematuria Musculoskeletal Musculoskeletal: Denies back pain or neck pain Integumentary Denies abscess or rash Neurologic Neurologic: Denies headache(s) or weakness Allergic/Immunologic Allergic/Immunologic ED: Denies mouth swelling or urticaria [facility] Medical History Anemia Anxiety Asthma Depression Gastric reflux Non-smoker Shortness of breath on exertion Home Medications albuterol (refill) 90 mcg/actuation aerosol inhaler 90 mcg inhalation PRN PRN SOB 04/05/22 [History Last Taken Unknown] biotin 10,000 mcg chewable tablet (Hair, Skin and Nails (biotin)) 10,000 mcg PO DAILY 04/05/22 [History Last Taken Unknown] multivitamin 1 cap PO DAILY 04/05/22 [History Last Taken Unknown] omeprazole 40 mg capsule,delayed release 40 mg PO PRN PRN GERD 04/05/22 [History Last Taken Unknown] azithromycin 500 mg tablet 500 mg PO DAILY #4 tabs 05/16/22 [Rx Last Taken Unknown] doxycycline hyclate 100 mg capsule 100 mg PO BID #14 caps 07/27/22 [Rx Last Taken Unknown] Allergy/AdvReac Type Severity Reaction Status Date / Time Mycobacterium Tuberculosis Allergy Mild Nausea/Vom/ Verified 05/03/23 20:01 (Tubercu Diarrhea Sulfa (Sulfonamide Allergy Mild Other Verified 05/03/23 20:01 Antibiotics) Latex, Natural Rubber Allergy Swelling Verified 05/03/23 20:01 Family History Father Diabetes Uncle Diabetes Grandmother Diabetes Surgical History History of wisdom tooth extraction, class II edentulism Social History Smoking Status: Never smoker alcohol intake: never substance use type: does not use caffeine: Yes what type of physical activity do you participate in: walking seatbelt use: always do you feel safe at home: Yes additional social history: single Patient works at [employer] EXAM Physical Exam Const Vital Signs: 05/03/23 19:59 05/03/23 22:39 Temperature 97 F L Temperature Source Temporal Pulse Rate 84 Respiratory Rate 16 Respiratory Effort Normal Non-Labored Respiratory Depth Normal Respiratory Pattern Normal Blood Pressure 137/84 H Blood Pressure Mean 101 Pulse Ox 100 Oxygen Delivery Method Room Air Positive well nourished and well developed General Appearance ED: well developed and NAD HEENT Reports moist mucous membranes normocephalic and atraumatic Throat: posterior oropharynx abnormal Positive for erythema (Mild); Negative for edema or exudates Neck supple and no JVD General: Negative for anterior neck swelling Resp normal respiratory effort Cardio Rate: regular rate Rhythm: regular rhythm GI non-tender and non-distended Palpation: soft Neuro oriented x3, CN's II-XII intact bilaterally and no sensory deficits noted Sensorium / Orientation: alert Motor Exam: strength 5/5 throughout Psych mental status grossly normal MDM MDM MDM Narrative Medical decision making narrative: Differential diagnosis includes pneumonia, viral pharyngitis, strep pharyngitis, viral upper respiratory infection, COVID-19 infection, and influenza infection. Chest x-ray will be obtained to assess for pneumonia. Rapid strep will be obtained to assess for strep pharyngitis. COVID-19 rapid antigen will be obtained to assess for COVID-19 infection. Influenza A and influenza B antigens will be obtained to assess for influenza infection. Lab Data Lab results narrative: COVID-19 rapid antigen was reviewed and was negative. Influenza A and influenza B antigens were reviewed and were negative. Rapid strep was reviewed and was negative. Radiography Diagnostic Testing: Clinical Impression(s) from Imaging Studies Chest X-Ray 05/03/23 23:43 IMPRESSION: No evidence of cardiopulmonary disease. Electronically Signed: Zaheer Todd, DO at 0:15 EST , PA and lateral chest x-ray was obtained. There are 2 views. On my independent interpretation, lung south are clear. There is normal cardiac silhouette. Bony thorax is normal. There is no acute process noted. Radiologist also interpreted the x-ray and agrees. Treatment and Re-Evaluation Narrative: Patient was advised of her findings. Patient was advised that this is most likely a viral bronchitis. Patient was instructed to follow-up with her primary care physician in 5 to 7 days for reevaluation. Patient was instructed to return if worse in any way. Patient understood and was agreeable with the plan. All questions were answered. Discharge Plan Triage Chief Complaint: Cough ED Provider: Chris Velasquez Dx/Rx/DC Orders Clinical Impression: Viral bronchitis, Obesity (BMI 30-39.9) Instructions: ED Bronchitis, No Antibiotic (Adult) Prescriptions: No Action omeprazole 40 mg Capsule,Delayed Release(Dr/Ec) 40 mg PO PRN PRN (Reason: GERD) multivitamin Capsule 1 cap PO DAILY albuterol (refill) 90 mcg/actuation Aerosol 90 mcg INHALATION PRN PRN (Reason: SOB) Hair, Skin and Nails (biotin) 10,000 mcg Tablet,Chewable 10,000 mcg PO DAILY azithromycin 500 mg tablet 500 mg PO DAILY Qty: 4 0RF doxycycline hyclate 100 mg capsule 100 mg PO BID Qty: 14 0RF Primary Care Provider: Fe Plascencia MAINTENANCE AND UTILITIES SUPERVISOR Referrals: Fe Plascencia MAINTENANCE AND UTILITIES SUPERVISOR, MAINTENANCE AND UTILITIES SUPERVISOR-C [Primary Care Provider] - 5-7 Days Disposition Disposition: Home, Self Care
--- NOTE | 2023-05-03 23:43 | RAD_ITS ---
INDICATION: Cough EXAMINATION/TECHNIQUE: X-RAY - XR Chest 2 Views COMPARISON: 10/02/2014. FINDINGS: LINES/DEVICES: None. LUNGS: No consolidation or evidence of an effusion. No evidence of edema or a pneumothorax. MEDIASTINUM AND CARDIOVASCULAR STRUCTURES: Cardiac silhouette is normal in size and contour. Mediastinum is unremarkable. BONES AND SOFT TISSUES: No acute abnormality. RAD/Chest PA and Lateral IMPRESSION: No evidence of cardiopulmonary disease. Electronically Signed: Zaheer Todd DO at 0:15 EST ,
--- NOTE | 2023-05-08 08:20 | ED.RN ---
THIS RN RECEIVED ALERT FROM LAB ABOUT PT HAVING POSITIVE STREP CULTURE. CHART REVIEWED BY MD. THIS RN ATTEMPTED TO CALL PATIENT AND INQUIRE OF HOW PATIENT WAS FEELING, PER MD REQUEST. NO ANSWER. UNABLE TO LEAVE A VOICE MESSAGE DUE TO MAILBOX BEING FULL.
== END 2023-05-04 00:45 | disposition home or self-care (01) ==
PROVIDERS: Emergency Provider Emergency Medicine; PCP Nurse Practitioner Family; Visit Provider Emergency Medicine
DX: J40 Bronchitis, not specified as acute or chronic (principal); E66.9 Obesity, unspecified; K21.9 Gastro-esophageal reflux disease without esophagitis; Z68.30 Body mass index [BMI] 30.0-30.9, adult
CPT/HCPCS: 71046; 87077; 87428; 87880; 99282

== ENCOUNTER → 2024-09-05 | Outpatient (CLI) | payer BC, SELFPAY ==
[2024-09-11 20:08] LABS: HPV APTIMA, High Risk Positive (Negative); HPV Genotype 16, Aptima Negative (Negative); HPV Genotype 18,45 Aptima Negative (Negative)
== END | disposition home or self-care (01) ==
LOC: LABSPEC 16:29
PROVIDERS: PCP Nurse Practitioner Family; Referring Provider Obstetrics & Gynecology; Visit Provider Obstetrics & Gynecology
DX: Z12.4 Encounter for screening for malignant neoplasm of cervix (principal)
CPT/HCPCS: 87624; 88175; G0145

== ENCOUNTER 2024-09-29 18:50 | Emergency (ER) | payer BC, SELFPAY ==
[2024-09-29 18:51] VITALS: BP 135/92; PULSE 61; RESP 15; TEMP 36.6; O2SAT 100; BMI 40.5
--- NOTE | 2024-09-29 19:09 | EDS_ITS ---
HPI History of Present Illness Chief Complaint: Other, Pain/Inj Informant: patient Onset/Context/Timing Onset: Days Context: Gradual Onset Timing: Continuous Current Severity: Mild Maximum Severity: Mild Narrative Narrative: 29-year-old female prior tonsillectomy. States that she has had discomfort in her neck and swollen lymph nodes for about 9 to 10 days. No vomiting or diarrhea. No fever. No headache. No cough. No sore throat. No earache. No exposure to mono. No axillary or inguinal tenderness or lymphadenopathy. No weight loss. Positive body aches. She was seen in urgent care. They prescribed her an antibiotic which she did not fill the also prescribed her prednisone which she feels that has done her any good. Prior similar symptoms: No Recent Illness/Hospitalization: No PFSH PFSH Medical History Depression Anxiety Anemia Gastric reflux Non-smoker Shortness of breath on exertion Asthma Home Medications ?Medication ?Instructions ?Recorded ?Last Taken ?Type multivitamin 1 tab PO QDAY 09/05/24 Unkno wn History amoxicillin 875 mg-potassium 1 tab PO BID 7 days #14 t abs 09/29/24 Unknown Rx clavulanate 125 mg tablet Allergy/AdvReac Type Severity Reaction Status Date / Time Mycobacterium Tuberculosis Allergy Mild Nausea/Vom/ Verified 09/06/23 11:49 (Tubercu Diarrhea Sulfa (Sulfonamide Allergy Mild Other Verified 09/06/23 11:49 Antibiotics) Latex, Natural Rubber Allergy Swelling Verified 09/06/23 11:49 Family History Father Diabetes Uncle Diabetes Grandmother Diabetes Surgical History History of placement of ear tubes S/P tonsillectomy History of wisdom tooth extraction, class II edentulism Social History Smoking Status: Never smoker alcohol intake: never substance use type: does not use caffeine: No what type of physical activity do you participate in: none seatbelt use: always do you feel safe at home: Yes additional social history: single Patient works at [employer] ROS ED ROS Narrative Body aches. Swollen lymph nodes. Constitutional Constitutional ED: Denies chills or fever(s) Eyes Eyes: Denies blurry vision ENT ENT ED: Denies ear pain Cardiovascular Cardiovascular: Denies chest pain Respiratory/Chest Respiratory/Chest: Denies cough or dyspnea Gastrointestinal Gastrointestinal: Denies abdominal pain Genitourinary Genitourinary ED: Denies dysuria or hematuria Musculoskeletal Musculoskeletal: Denies arthralgias or back pain Integumentary Denies abscess or Abrasions Neurologic Neurologic: Denies headache(s) or paresthesias Psychiatric Psychiatric: Denies anxiety or depression Endocrine Endocrinology: Denies cold intolerance Hematologic/Lymphatic Hematologic/Lymphatic: Reports none Allergic/Immunologic Allergic/Immunologic ED: Denies mouth swelling, tongue swelling or urticaria EXAM Physical Exam Narrative Exam Narrative: Well-appearing 29-year-old female. Accompanied by her small son. Vital signs are stable afebrile. Pulse ox 100% on room air no hypoxia. She is in no distress. Clinically looks well. H EENT exam pupils round reactive light. Moist mucous membranes. Posterior pharynx normal. No trouble swallowing or breathing. Dentition in good shape. TMs bilaterally normal. Neck she has 1-2 swollen lymph nodes on the anterior lateral chain on the right and 1 on the left. No posterior lymphadenopathy. Trachea midline. No trouble swallowing or breathing. Lungs clear to auscultation bilaterally. Heart regular rhythm rate about 60 no murmur. Chest wall and ribs nontender. Abdomen soft nontender. Moving all 4 extremities. Neurovascularly intact. Normal cisco consultant strength. Normal range of motion. No edema. Back nontender. Neurologically she is awake and alert. She has no palpable or tender axillary or inguinal lymphadenopathy. Const Vital Signs: 09/29/24 18:50 09/29/24 18:51 09/29/24 19:33 Temperature 97.9 F 98.0 F Temperature Source Temporal Pulse Rate 61 65 Respiratory Rate 15 18 Respiratory Effort Normal Respiratory Pattern Normal Blood Pressure 135/92 H 128/65 H Blood Pressure Mean 106 86 Pulse Ox 100 100 Oxygen Delivery Method Room Air Positive well nourished and well developed; Negative for cachectic, contractures or unkempt General Appearance ED: well developed and NAD; Negative for unkempt, cachectic, contractures, cyanotic, diaphoretic or pallor Nutritional Appearance: Negative for cachectic HEENT Reports moist mucous membranes Eyes PERRL and EOMs intact bilaterally General Eye ED: Negative for pale conjunctiva or scleral icterus Neck No no lymphadenopathy, supple and no JVD Neck Narrative: Anterior chain lymphadenopathy on the right and the left. Trachea midline. No posterior chain. No meningismus. General: tenderness Chest Wall inspection of chest normal and palpation of chest normal Resp normal respiratory effort and clear to auscultation bilaterally Auscultation: Negative for rales, rhonchi, wheezes or diminished lung sounds Cardio regular rate, regular rhythm, S1 normal heart sound, S2 normal heart sound and no murmurs GI normal to inspection, nondistended, normoactive bowel sounds, non-tender, non- distended and no masses Palpation: soft; Negative for tender, guarding, splenomegaly, mass or rebound tenderness present Back/Spine no CVA tenderness General Back: Negative for CVA tenderness Cervical Spine: Negative for cervical spine tenderness Thoracic Spine / Upper Back: Negative for thoracic spinal tenderness or paraspinal muscle tenderness Lumbar Spine / Lower Back: Negative for lumbar spinal tenderness Extremity normal to inspection General Extremety ED: Negative for edema or tenderness General Extremity: Negative for edema Neuro CN's II-XII intact bilaterally Sensorium / Orientation: alert; Negative for orientation impaired, lethargic or stuporous Motor Exam: strength 5/5 throughout Psych mental status grossly normal Appearance: Negative for unkempt Attitude: No agitated Mood & Affect: Negative for depressed, anxious or tearful Skin no rashes or lesions noted, no wounds and skin turgor normal General Skin Exam: elasticity normal; Negative for jaundice or pallor Lesions: No lesion noted Rashes: No rashes noted Trauma: Negative for abrasion Wounds: Negative for wounds noted MDM MDM MDM Narrative Medical decision making narrative: 29-year-old female 9-day history of cervical lymphadenopathy. Monotest to be obtained. She will be placed on Augmentin 875 twice daily for 7 days. Follow- up with her primary care physician if not improving. Return if worse. I do not think she needs other lab work. If the monitor is positive I will have her stop the antibiotic. History & Record Review Discussion w/independent historian: Patient Additional record(s) reviewed:: Prior inpatient record, Prior outpatient record, Prior ED visit and Prior labs Lab Data Attestation: I reviewed the patient's lab results. Lab results narrative: [place] test is negative. Labs: Laboratory Results - last 24 hr 09/29/24 19:25 Monoscreen Negative Discharge Plan Triage Chief Complaint: Other, Pain/Inj ED Provider: Lloyd Power Dx/Rx/DC Orders Clinical Impression: Anterior cervical lymphadenopathy Instructions: ED ADENITIS Cervical Abx Tx Prescriptions: New amoxicillin-pot clavulanate 875-125 mg tablet 1 tab PO BID 7 Days Qty: 14 0RF No Action multivitamin Tablet 1 tab PO QDAY Primary Care Provider: Fe Plascencia NP Referrals: Fe Plascencia NP, [employer] [Primary Care Provider] - 1 Week if not improving Activity Restrictions/Additional Instructions: Your swollen lymph nodes and may be infected. This could be viral. However if the monotest is negative already treated with antibiotic. You will take 1 pill twice a day for 7 days till gone. Follow-up your primary care provider if not improving or return if worse. Motrin Tylenol for any pain. Call the ER in 2 hours around 9:[address] Power. I can go over with you your monotest results. If it is positive you can stop the antibiotic. If it is negative we can treat with a antibiotic. Stop the steroid the urgent care put you on. It is doing you no good. Print Language: [place] Disposition Disposition: Home, Self Care Discharge Date/Time: 09/29/24 19:49
[2024-09-29 19:33] VITALS: BP 128/65; PULSE 65; RESP 18; TEMP 36.7; O2SAT 100
[2024-09-29 19:56] LABS: Internal QC Validated? YES +Cl - CLEAR BKGD; Monotest Negative (Negative); Record Kit Lot#, Mono 13241430
== END 2024-09-29 19:49 | disposition home or self-care (01) ==
LOC: ED 19:18
PROVIDERS: Emergency Provider Emergency Medicine; PCP Nurse Practitioner Family; Visit Provider Emergency Medicine
DX: R59.0 Localized enlarged lymph nodes (principal); Z98.890 Other specified postprocedural states
CPT/HCPCS: 36415; 86308; 99282

== ENCOUNTER 2024-11-08 07:37 | Outpatient (RCR) | payer SELFPAY | END 2024-12-06 23:59 | LOC: NS 07:37 | PROVIDERS: PCP Nurse Practitioner Family; Referring Provider Obstetrics & Gynecology; Visit Provider Obstetrics & Gynecology | DX: Z71.3 Dietary counseling and surveillance (principal); E66.9 Obesity, unspecified; Z68.41 Body mass index [BMI] 40.0-44.9, adult | CPT/HCPCS: 97802 ==

== ENCOUNTER 2024-12-17 16:06 | Outpatient (RCR) | payer SELFPAY | END 2025-01-06 23:59 | LOC: NS 16:06 | PROVIDERS: PCP Nurse Practitioner Family; Referring Provider Obstetrics & Gynecology; Visit Provider Obstetrics & Gynecology | DX: Z71.3 Dietary counseling and surveillance (principal); E66.9 Obesity, unspecified; Z68.42 Body mass index [BMI] 45.0-49.9, adult | CPT/HCPCS: 97803 ==